=== PATIENT | female | born 1945 | race Caucasian/White ===

== ENCOUNTER 2018-07-24 10:56 | Emergency (ER) | payer MEDICARE ==
[~2018-07-24] VITALS: Ht 162.6 cm; Wt 99.8 kg
[~2018-07-24 10:56] MED LIST: ABILIFY5 MG; CELEBREX200 MG; FLEXERIL10 MG PO; LIPITOR10 MG; LIPITOR10 MG PO; VICODIN 5-5001 EACH PO
[2018-07-24] MEDS ORDERED: SUCRALFATE1 GM PO (11:15)
[2018-07-24] MEDS ORDERED: HYDROMORPHONE HC2 MG PO (11:15)
[2018-07-24] MEDS ORDERED: DYAZIDE 37.5-251 EA PO (11:15)
[2018-07-24] MEDS ORDERED: OMEPRAZOLE40 MG PO (11:16)
[2018-07-24] MEDS ORDERED: CELECOXIB200 MG PO (11:16)
[2018-07-24] MEDS ORDERED: SIMVASTATIN20 MG PO (11:16)
[2018-07-24] MEDS ORDERED: DOXAZOSIN MESYLA2 MG PO (11:17)
[2018-07-24] MEDS ORDERED: KEFLEX500 MG PO (11:54)
== END 2018-07-24 12:06 | disposition home or self-care (01) ==
LOC: ED 10:56
DX: L73.9 Follicular disorder, unspecified (principal); I10 Essential (primary) hypertension; Z88.5 Allergy status to narcotic agent; Z79.899 Other long term (current) drug therapy
CPT/HCPCS: 99282